=== PATIENT | male | born 1950 | race Asian ===

== ENCOUNTER 2017-07-22 02:42 | Emergency (ER) | payer OTHER ==
[~2017-07-22] VITALS: Ht 177.8 cm; Wt 76.4 kg
[2017-07-22] MEDS ORDERED: ATOR40TA28 PO (02:51)
[2017-07-22] MEDS ORDERED: HYDR25TA PO (02:51)
[2017-07-22] MEDS ORDERED: ATEN50TA PO (02:51)
[2017-07-22 05:58] VITALS: BP 184/99
[2017-07-22] MEDS ORDERED: METOPROLOL TARTRATE 50 MG TABLET PO ONE (06:15)
[2017-07-22] MEDS ORDERED: HYDROCHLOROTHIAZIDE 25 MG TABLET PO ONE (06:15)
[2017-07-22] MEDS ORDERED: IBUPROFEN 600 MG TABLET PO ONE (06:15)
== END 2017-07-22 07:08 | disposition home or self-care (01) ==
LOC: EMS 02:44
DX: S46.912A Strain of unspecified muscle, fascia and tendon at shoulder and upper arm level, left arm, initial encounter (principal); I10 Essential (primary) hypertension; E78.00 Pure hypercholesterolemia, unspecified; F17.210 Nicotine dependence, cigarettes, uncomplicated; X50.0XXA Overexertion from strenuous movement or load, initial encounter; Y93.89 Activity, other specified; Y92.89 Other specified places as the place of occurrence of the external cause; Y99.8 Other external cause status
CPT/HCPCS: 99284; 99406

== ENCOUNTER 2017-07-27 23:07 | Emergency (ER) | payer OTHER ==
[~2017-07-27] VITALS: Ht 177.8 cm; Wt 75.9 kg
[~2017-07-27 23:07] MED LIST: ATEN50TA PO; ATOR40TA28 PO; HYDR25TA PO
[2017-07-28 01:05] VITALS: BP 158/97
[2017-07-28] MEDS ORDERED: DiphenhydrAMINE/ZINC ACET 30 GM CREAM TP ONE (01:15)
[2017-07-28] MEDS ORDERED: DiphenhydrAMINE HCL 25 MG CAPSULE PO ONE (01:15)
== END 2017-07-28 01:29 | disposition home or self-care (01) ==
LOC: EMS 23:08
DX: L27.0 Generalized skin eruption due to drugs and medicaments taken internally (principal); E78.00 Pure hypercholesterolemia, unspecified; I10 Essential (primary) hypertension; F17.210 Nicotine dependence, cigarettes, uncomplicated; Z79.899 Other long term (current) drug therapy
CPT/HCPCS: 99283